=== PATIENT | male | born 2005 | race Asian ===

== ENCOUNTER 2025-06-03 20:34 | Emergency (ER) | payer OTHER, SELFPAY ==
[2025-06-03 20:34] VITALS: BP 126/88; PULSE 102; RESP 16; TEMP 36.4; O2SAT 98; BMI 26.4
--- NOTE | 2025-06-03 20:42 | EX.ED.UPPERE ---
HPI History of Present Illness HPI Narrative: 19-year-old male [id number] was playing soccer when the ball struck his right thumb complaining of pain between the interphalangeal joint. Denies any other injuries. No prior history of surgery to the right hand or thumb. Denies any other complaints. Pain is just to the thumb not the other digits or the palm. Chief Complaint: Upper Extremity Injury Informant: patient Occured/Mechanism Mechanism/Context: Yes injury and Yes blunt trauma Onset/Context/Timing Onset: Today and Hours Context: Sudden Onset Timing: Continuous Quality of Pain: Sharp Current Severity: Moderate Maximum Severity: Moderate Associated Symptoms Associated Symptoms: Negative for Parasthesia, Weakness or Loss of Funtion Narrative Narrative: 19-year-old male [id number] right thumb injury about an hour ago. Prior similar symptoms: No Recent Illness/Hospitalization: No PFSH PFSH Medical History no medical history no medical history Home Medications ?Medication ?Instructions ?Recorded ?Last Taken ?Type NK 06/03/25 Unknown History Allergy/AdvReac Type Severity Reaction Status Date / Time No Known Allergies Allergy Verified 06/03/25 20:36 Surgical History no surgical history no surgical history Social History Smoking Status: Never smoker ROS ROS ED ROS Narrative Denies recent illness. Constitutional Constitutional ED: Denies chills or fever(s) Eyes Eyes: Denies blurry vision ENT ENT ED: Denies ear pain Cardiovascular Cardiovascular: Denies chest pain or palpitations Respiratory/Chest Respiratory/Chest: Denies cough or dyspnea Gastrointestinal Gastrointestinal: Denies abdominal pain Genitourinary Genitourinary ED: Denies hematuria Musculoskeletal Musculoskeletal: Denies back pain or myalgias Integumentary Denies abscess or Abrasions Neurologic Neurologic: Denies headache(s) Psychiatric Psychiatric: Denies anxiety or depression Endocrine Endocrinology: Denies cold intolerance or heat intolerance Hematologic/Lymphatic Hematologic/Lymphatic: Denies easy bleeding, easy bruising or lymphadenopathy Allergic/Immunologic Allergic/Immunologic ED: Denies mouth swelling, tongue swelling or urticaria EXAM Physical Exam Narrative Exam Narrative: 19-year-old male sitting upright in chair vital signs stable afebrile. No acute distress. H EENT exam pupils round react light. No trauma. Neck nontender. Back nontender. Lungs clear to auscultation. Heart regular rhythm rate about 100 no murmur. Chest wall and ribs nontender. Abdomen soft nontender. Moving all 4 extremities. Neurovascular intact. Right shoulder, right elbow right wrist nontender nonswollen normal range of motion. Right thumb tender at the interphalangeal joint. Mild swelling. He is able to do flexion extension. He has normal flexion extension at the MCP. Palm and the fingers are nontender. Wrist forearm elbow nontender. Skins intact. Mild swelling. Normal sensation. Const Vital Signs: 06/03/25 20:34 Temperature 97.6 F L Temperature Source Temporal Pulse Rate 102 H Respiratory Rate 16 Blood Pressure 126/88 H Blood Pressure Mean 100 Pulse Ox 98 Oxygen Delivery Method Room Air Positive well nourished and well developed; Negative for cachectic, contractures or unkempt General Appearance ED: well developed and NAD; Negative for unkempt, cachectic, contractures, cyanotic or diaphoretic Nutritional Appearance: Negative for cachectic HEENT Reports moist mucous membranes normocephalic and atraumatic Eyes PERRL and EOMs intact bilaterally Neck full ROM and supple Chest Wall inspection of chest normal and palpation of chest normal Resp normal respiratory effort and clear to auscultation bilaterally Cardio regular rate, regular rhythm, S1 normal heart sound, S2 normal heart sound and no murmurs GI non-tender, non-distended and no masses Auscultation: normoactive bowel sounds Palpation: soft; Negative for tender, guarding or rebound tenderness present Back/Spine no CVA tenderness General Back: Negative for CVA tenderness Cervical Spine: Negative for cervical spine tenderness Thoracic Spine / Upper Back: Negative for thoracic spinal tenderness Lumbar Spine / Lower Back: Negative for lumbar spinal tenderness Extremity normal to inspection and full ROM Extremity Narrative: Except right thumb. Tender at the interphalangeal joint. Mild swelling. Able to do flexion extension. MCP nontender. Palm and fingers nontender. Normal touch sensation. Skin intact. General Extremety ED: Yes edema General Extremity: edema Neuro oriented x3, CN's II-XII intact bilaterally, moves all extremities, no focal motor deficits and no sensory deficits noted Sensorium / Orientation: alert, oriented to person, oriented to place and oriented to time Motor Exam: strength 5/5 throughout Psych mental status grossly normal Appearance: Negative for unkempt Skin Lesions: no lesions Rashes: no rashes Trauma: no lacerations or abrasions MDM MDM MDM Narrative Medical decision making narrative: 19-year-old male right thumb injury playing soccer. X-ray being obtained. He was offered but did not want any Motrin or Tylenol. Repeat exam unchanged. The x-ray could be a nondisplaced fracture of the distal phalanx of the thumb versus nutrient vessel. Radiologist read is negative. However on exam it is exactly the patient's tender. To be treated as a fracture and I placed in a splint. History & Record Review Discussion w/independent historian: Patient Additional record(s) reviewed:: No prior records Radiography Diagnostic Testing: Right thumb x-ray, 2 views, AP and lateral, interpreted by myself shows either a nondisplaced fracture of the proximal end of the distal phalanx of the thumb versus nutrient vessel. Radiologist's reading is negative. Discharge Plan Triage Chief Complaint: Upper Extremity Injury ED Provider: Haroon Chavez Dx/Rx/DC Orders Clinical Impression: Fracture of thumb Instructions: ED Fracture, Thumb Prescriptions: No Action NK Primary Care Provider: Care Physician,Maria Antonia Primary Referrals: Santi Lazaro DO [Med Staff - Active Staff, Orthopedics] - 1-2 Weeks Activity Restrictions/Additional Instructions: Ice to your right thumb to decrease pain and swelling. Ice and elevate. 5 times a day for 30 minutes each time next 3 days. Motrin or ibuprofen for pain and swelling. Tylenol for pain. This should progressively get better. Follow-up if not improving. Leave the splint on for the next 3 weeks. You can take it off to do range of motion to prevent stiffness. This should progressively improve. Follow-up with orthopedics if not improving. Print Language: Luxembour[place] Disposition Disposition: Home, Self Care Discharge Date/Time: 06/03/25 21:20
--- NOTE | 2025-06-03 20:45 | RAD_ITS ---
PROCEDURE: RIGHT FINGER(S) MIN 2 VIEWS 06/03/2025 REASON FOR EXAM: RIGHT THUMB INJURY TECHNIQUE: Procedure Code: RADFIN Modality: DX Procedure: FINGER(S) MIN 2 VIEWS Laterality: Right COMPARISON: None. FINDINGS: No acute fracture or dislocation. Alignment is anatomic. Preserved joint spaces. No aggressive osseous lesion. No marked soft tissue swelling or radiopaque foreign body. RAD/Finger(s) Min 2 Views IMPRESSION: No acute fracture or dislocation. Reading Location: [id number]
== END 2025-06-03 21:20 | disposition home or self-care (01) ==
PROVIDERS: Emergency Provider Emergency Medicine; Visit Provider Emergency Medicine
DX: S62.524A Nondisplaced fracture of distal phalanx of right thumb, initial encounter for closed fracture (principal); W21.02XA Struck by soccer ball, initial encounter; Y93.66 Activity, soccer
CPT/HCPCS: 73140; 99282